=== PATIENT | male | born 1940 | race Asian ===

== ENCOUNTER 2017-01-25 10:12 | Emergency (ER) | payer OTHER ==
[~2017-01-25] VITALS: Ht 167.6 cm; Wt 69.3 kg
[2017-01-25 10:15] VITALS: BP 154/90
[2017-01-25] MEDS ORDERED: OMEP-110 PO (10:23)
== END 2017-01-25 11:35 | disposition home or self-care (01) ==
LOC: ED 10:33
DX: M70.21 Olecranon bursitis, right elbow (principal)
CPT/HCPCS: 99284